=== PATIENT | female | born 1980 | race African-American/Black ===

== ENCOUNTER 2021-11-05 15:26 | Emergency (ER) | payer OTHER ==
[2021-11-05 15:35] VITALS: BP 147/97; PULSE 83; TEMP 99; BMI 35.4
[2021-11-05] MEDS ORDERED: ACETAMINOPHEN 500 MG TABLET (FP) PO ONE (16:41)
[2021-11-05] MEDS ORDERED: ACETAMINOPHEN 500 MG TABLET (FP) ONE (16:55)
== END 2021-11-05 17:12 | disposition home or self-care (01) ==
LOC: JER 15:26 → JERFT 15:26
DX: S93.491A Sprain of other ligament of right ankle, initial encounter (principal); W18.40XA Slipping, tripping and stumbling without falling, unspecified, initial encounter
CPT/HCPCS: 73610-TC-RT-FY; 99283-25

== ENCOUNTER 2021-12-05 10:08 | Emergency (ER) | payer OTHER ==
[2021-12-05 10:26] VITALS: BP 139/90; PULSE 91; TEMP 98.1; BMI 37.9
[2021-12-05] MEDS ORDERED: ACETAMINOPHEN 500 MG TABLET (FP) PO ONE (11:32)
[2021-12-05] MEDS ORDERED: diazePAM 5 MG TABLET PO ONE (11:32)
[2021-12-05] MEDS ORDERED: ACETAMINOPHEN 325 MG TABLET (FP) ONE (11:46)
[2021-12-05] MEDS ORDERED: diazePAM 5 MG TABLET ONE (11:47)
== END 2021-12-05 13:52 | disposition home or self-care (01) ==
LOC: JER 10:08
DX: M54.16 Radiculopathy, lumbar region (principal); S06.0X9A Concussion with loss of consciousness of unspecified duration, initial encounter; W00.0XXA Fall on same level due to ice and snow, initial encounter
CPT/HCPCS: 70450-TC; 72100-TC-FY; 99284-25

== ENCOUNTER 2023-10-18 12:27 | Emergency (ER) | payer OTHER ==
[2023-10-18 13:25] VITALS: BP 164/102; PULSE 77; RESP 18; TEMP 97.8; BMI 38.4
[2023-10-18] MEDS ORDERED: KETOROLAC TROMETHAMINE 30 MG/1 ML VIAL IM ONE (16:16)
[2023-10-18] MEDS ORDERED: KETOROLAC TROMETHAMINE 30 MG/1 ML VIAL ONE (16:17)
== END 2023-10-18 16:55 | disposition home or self-care (01) ==
LOC: JERFT 12:27
PROC: 3E0233Z Introduction of Anti-inflammatory into Muscle, Percutaneous Approach (ICD-10-PCS; principal; 2023-10-18)
DX: M25.552 Pain in left hip (principal); M25.512 Pain in left shoulder; W10.8XXA Fall (on) (from) other stairs and steps, initial encounter; Y92.9 Unspecified place or not applicable
CPT/HCPCS: 72170-TC-FY; 73030-TC-LT-FY; 73521-TC-FY; 99284-25